=== PATIENT | female | born 1935 | race Caucasian/White ===

== ENCOUNTER 2020-06-14 15:06 | Emergency (ER) | payer MEDICARE ==
[~2020-06-14] VITALS: Ht 149.9 cm; Wt 52.6 kg
[2020-06-14] MEDS ORDERED: ALBUTEROL/IPRATROPIUM 3 ML NEB NEB ONE (15:45)
[2020-06-14] MEDS ORDERED: ALBUTEROL/IPRATROPIUM 3 ML NEB ONE (16:12)
[2020-06-14 18:35] VITALS: BP 150/79
== END 2020-06-14 18:41 | disposition home or self-care (01) ==
LOC: FSED 15:40
DX: R06.00 Dyspnea, unspecified (principal); R05 Cough; J20.9 Acute bronchitis, unspecified; F03.90 Unspecified dementia, unspecified severity, without behavioral disturbance, psychotic disturbance, mood disturbance, and anxiety
CPT/HCPCS: 71045; 80053; 85025; 93005; 99283; U0002

== ENCOUNTER 2021-12-12 19:16 | Emergency (ER) | payer MEDICARE, OTHER ==
[~2021-12-12] VITALS: Ht 149.9 cm; Wt 52.6 kg
[2021-12-12 20:50] LABS: BASOPHILS % 0.3 % (0.0-1.0); EOSINOPHILS # (AUTO) 0.3 (0.0-0.4); EOSINOPHILS % 2.2 % (0.0-6.0); HEMATOCRIT 42.5 % (34.2-44.1); HEMOGLOBIN 14.1 g/dL (12.0-16.0); LYMPHOCYTES # (AUTO) 1.2 (1.0-3.2); LYMPHOCYTES % 9.4 % (18.0-39.1); MEAN CORPUSCULAR HEMOGLOBIN 30.5 pg (28-32); MEAN CORPUSCULAR HGB CONC 33.2 g/dL (31-35); MONOCYTES # (AUTO) 0.8 (0.2-0.8); MONOCYTES % 6.5 % (4.4-11.3); NEUTROPHILS % 81.3 % (38.7-80.0); PLATELET COUNT 230 x10e3/uL (140-360); RED BLOOD COUNT 4.62 x10e6/uL (3.6-5.1); RED CELL DISTRIBUTION WIDTH 13.2 % (11.7-14.4)
[2021-12-12 21:03] LABS: INR 0.89; PARTIAL THROMBOPLASTIN TIME 26.5 seconds (23.8-35.5); PROTHROMBIN TIME 12.9 seconds (11.9-14.5)
[2021-12-12 21:12] LABS: ALBUMIN 3.4 g/dL (3.5-5.0); ANION GAP 16.4 mmol/L (8-16); CALCIUM 9.3 mg/dL (8.4-10.2); CREATININE, SERUM 0.84 mg/dL (0.57-1.11); POTASSIUM 4.4 mmol/L (3.5-5.1)
[2021-12-12 21:58] VITALS: BP 161/58
== END 2021-12-12 22:00 | disposition other institution (70) ==
LOC: ER 19:20
DX: S06.5X0A Traumatic subdural hemorrhage without loss of consciousness, initial encounter (principal); S02.2XXA Fracture of nasal bones, initial encounter for closed fracture; S00.511A Abrasion of lip, initial encounter; V48.4XXA Person boarding or alighting a car injured in noncollision transport accident, initial encounter; Y92.89 Other specified places as the place of occurrence of the external cause; F03.90 Unspecified dementia, unspecified severity, without behavioral disturbance, psychotic disturbance, mood disturbance, and anxiety
CPT/HCPCS: 36415; 70450; 70486; 71045; 72125; 73522; 80053; 85025; 85610; 85730; 99284